=== PATIENT | female | born 1985 | race African-American/Black ===

== ENCOUNTER 2018-10-23 20:59 | Emergency (ER) | payer OTHER ==
[~2018-10-23] VITALS: Ht 165.1 cm; Wt 70.0 kg
[2018-10-23 21:18] VITALS: BP 144/96
== END 2018-10-24 03:47 | disposition left against medical advice (07) ==
LOC: ER 20:59
DX: Z53.21 Procedure and treatment not carried out due to patient leaving prior to being seen by health care provider (principal)